=== PATIENT | female | born 1950 | race Caucasian/White ===

== ENCOUNTER → 2021-11-04 13:31 | Outpatient (BNVA) | payer MEDICARE, OTHER, SELFPAY | PROVIDERS: PCP Internal Medicine; Visit Provider Psychiatry & Neurology Neurology | DX: R26.89 Other abnormalities of gait and mobility (principal); M48.00 Spinal stenosis, site unspecified | CPT/HCPCS: 99202 ==

== ENCOUNTER 2021-11-18 11:08 | Outpatient (REF) | payer MEDICARE, OTHER, SELFPAY ==
--- NOTE | ~2021-11-18 | MR_ITS ---
EXAMINATION: MR BRAIN WITHOUT CONTRAST. CLINICAL INFORMATION: 71-year-old with abnormality of gait and mobility. COMPARISON: None TECHNIQUE: Multiplanar multisequence MR imaging of the brain was done. FINDINGS: Brain Volume: Mild diffuse generalized brain parenchymal volume loss without definite focal regional predominance within the limitations of a qualitative assessment. Structural: Partially empty sella, normal variant. Brain and Meninges: DWI sequence demonstrates no restricted diffusion. Specifically, there is no evidence for acute or subacute cerebral ischemia. Gradient refocused imaging demonstrates no evidence for hemorrhage, hemosiderin staining or abnormal mineral deposition. A few punctate FLAIR/T2 hyperintensities are seen in the subcortical white matter of the left posterior frontal and right anterior frontal lobes which are nonspecific findings but likely reflect small zones of chronic ischemic microangiopathy. Otherwise the remainder of the brain is normal in signal intensity. No extra-axial fluid collections, space-occupying process, mass effect. Scattered perivascular spaces are noted. Ventricles and Subarachnoid Spaces: Ventricular system and subarachnoid spaces are within normal limits without hydrocephalus. Orbital Structures: The visualized orbital structures are grossly unremarkable within the limitations of the study. Vascular: Signal voids are noted in the visualized major intracranial vessels. Sinuses and Osseous Structures: Osseous marrow signal intensity appears grossly within normal limits. There are multilevel cervical degenerative changes between C3-C4 and C5-C6 inclusive with associated spondylosis and disc space height loss. Minor mucosal thickening in the ethmoid complex and maxillary sinuses with a small retention cyst in the right maxillary sinus. MR/MR head/brain wo con IMPRESSION: 1. No acute intracranial process. Specifically, no evidence for infarction, hemorrhage, extra-axial fluid collection, space-occupying process, mass effect or hydrocephalus. 2. A few nonspecific punctate T2 hyperintensities in the white matter of both cerebral hemispheres, which could reflect tiny foci of chronic ischemic microangiopathy in a patient of this age. 3. Mild paranasal sinus mucosal inflammatory changes as discussed above and upper cervical DDD and spondylosis.
== END 2021-11-18 11:09 | disposition home or self-care (01) ==
LOC: HO.MRI 11:08
PROVIDERS: Visit Provider Psychiatry & Neurology Neurology
DX: R26.89 Other abnormalities of gait and mobility (principal); M48.00 Spinal stenosis, site unspecified
CPT/HCPCS: 70551

== ENCOUNTER → 2022-01-06 10:04 | Outpatient (BNVA) | payer MEDICARE, OTHER, SELFPAY | PROVIDERS: PCP Internal Medicine; Visit Provider Psychiatry & Neurology Neurology | DX: G20 Parkinson's disease (principal); R26.89 Other abnormalities of gait and mobility; M48.00 Spinal stenosis, site unspecified | CPT/HCPCS: 99212 ==

== ENCOUNTER → 2022-03-24 08:23 | Outpatient (BNVA) | payer MEDICARE, OTHER, SELFPAY | PROVIDERS: PCP Internal Medicine; Visit Provider Psychiatry & Neurology Neurology | DX: G20 Parkinson's disease (principal); R26.89 Other abnormalities of gait and mobility; M48.00 Spinal stenosis, site unspecified | CPT/HCPCS: 99212 ==

== ENCOUNTER → 2022-06-09 07:52 | Outpatient (BNVA) | payer MEDICARE, OTHER, SELFPAY | PROVIDERS: PCP Internal Medicine; Visit Provider Psychiatry & Neurology Neurology | DX: G20 Parkinson's disease (principal); R26.89 Other abnormalities of gait and mobility; M48.00 Spinal stenosis, site unspecified; Z79.899 Other long term (current) drug therapy | CPT/HCPCS: 99212 ==

== ENCOUNTER → 2022-10-03 13:28 | Outpatient (BNVA) | payer MEDICARE, OTHER, SELFPAY | PROVIDERS: PCP Internal Medicine; Visit Provider Psychiatry & Neurology Neurology | DX: G20 Parkinson's disease (principal); M48.00 Spinal stenosis, site unspecified; R26.89 Other abnormalities of gait and mobility | CPT/HCPCS: 99212 ==

== ENCOUNTER → 2022-12-28 08:26 | Outpatient (BNVA) | payer MEDICARE, OTHER, SELFPAY | PROVIDERS: PCP Internal Medicine; Visit Provider Psychiatry & Neurology Neurology | DX: G20 Parkinson's disease (principal); R26.89 Other abnormalities of gait and mobility; M48.00 Spinal stenosis, site unspecified | CPT/HCPCS: 99212 ==

== ENCOUNTER 2023-05-01 08:53 | Outpatient (AMB) | payer MEDICARE, OTHER, SELFPAY ==
[2023-05-01 09:13] VITALS: BP 120/82; PULSE 77; O2SAT 99; BMI 39.8
--- NOTE | 2023-05-01 09:13 | A.OFFVIS_ITS ---
Intake Vital Signs 05/01/23 09:13 Height 5 ft Weight 204 lb BMI 39.8 BP 120/82 Blood Pressure Location Rt brachial Position Sitting Pulse 77 Pulse Source Pulse Oximeter Pulse Oximetry (%) 99 Oxygen Delivery Method Room Air Intake Visit Reasons: 4m follow up Parkinson's-lvm Intake Note: Patient presents for 4 month follow up Allergies pneumococcal 7-valent conjugate to [From Prevnar] Allergy (Mild, Verified 05/01/23 09:15) unknown Sulfa (Sulfonamide Antibiotics) Allergy (Mild, Verified 05/01/23 09:15) unknown enviormental Adverse Reaction (Uncoded 05/01/23 09:15) hard to breath Medication List - Last Reconciled 05/01/23 by Racquel Kruse MD aspirin 81 mg PO DAILY carbidopa-levodopa 25-100 mg 2 tabs PO QID cholecalciferol (vitamin D3) 50 mcg PO DAILY lisinopril 2.5 mg PO DAILY losartan 100 mg PO DAILY metformin ER 750 mg PO DAILY ropinirole ER 2 mg PO BEDTIME triamterene-hydrochlorothiazid 37.5-25 mg 1 tab PO DAILY HPI HPI Comments History of Present Illness Details 72y/o female with Diabetes, HTN , arthritis comes for follow up of her gait problems and parkinsons.she is doing good since her last visit.she had gall bladder surgery - had a fall and was in rehab and did well requip XL 2 mg qhs helped. Gabapentin does not help with sleep and had hallucinations she is on sinemet 25/100 8 tabs a day. Her restless legs start around 4 pm. she has h/o scoliosis and spinal stenosis . she is followed up at [facility] and had shots in her pat hip No tremors . less freezing episodes her hand movements are slow, handwriting is small and voice is softer. Cognition is stable She olivera strouble sleeping if she misses requip She is not sure if she snores. No problem with chewing or swallowing . she has h/o chronic constipation No dizziness double vision or vertigo [facility] Medical History Arthritis Back pain Diabetes Falls Gait disorder HTN (hypertension) Spinal stenosis Surgical History (Updated 05/01/23 @ 09:18 by Marsha Yu Jeffrey) History of appendectomy History of carpal tunnel release Hx of cholecystectomy Family History Mother HTN (hypertension) Heart disease Father HTN (hypertension) Heart disease Brother HTN (hypertension) Heart disease Sister HTN (hypertension) Heart disease Social History Alcohol intake: never Patient Tobacco Use Status: Never used Tobacco Physical Exam Vital Signs: Last Vital Signs Pulse 77 05/01/23 09:13 BP 120/82 05/01/23 09:13 Pulse Ox 99 05/01/23 09:13 Oxygen Delivery Method Room Air 05/01/23 09:13 BMI result Body Mass Index 39.8 Const General: cooperative, healthy appearing and no acute distress Nutritional Appearance: obese Orientation/consciousness: patient oriented x3 HEENT Head: Yes normal to inspection Neck Other: mild antecollis and restricted range of motion Neuro Other: Mild decreased blink and facial expression slow tongue movements Voice- mild hypophonia No tremors Fine Finger movements -moderately decreased L>R Alternating hand movements - decreased pat Hand movements - decreased pat Foot taps- decreased pat No cog wheel rigidity gait - mild stooped and tilt to left , no arm swing on left , mildly decreased stride , difficulty turning slowness, can walk without walker General: patient oriented x3 and no focal motor deficits Cognition (Neuro): normal cognition Motor exam (neuro): 5/5 motor strength present throughout Deep tendon reflexes (DTR's): Right triceps reflex intensity grade: 2+, Left triceps reflex intensity grade: 2+, Rt Biceps (C5, C6): 2+, Left biceps reflex intensity grade: 2+, Right brachioradialis reflex intensity grade: 2+, Right patellar reflex intensity grade: 2+, Left patellar reflex intensity grade: 2+, Right ankle reflex intensity grade: 2+ and Left ankle reflex intensity grade: 2+ Coordination: [id number] test normal Assessment & Plan Assessment & Plan (1) Multifactorial gait disorder: Code(s): R26.89 - Other abnormalities of gait and mobility (2) Spinal stenosis: Code(s): M48.00 - Spinal stenosis, site unspecified (3) Parkinson's disease: Code(s): G20 - Parkinson's disease Plan Sinemet 25/100 to 2 tab qid( 6am,11am,3pm,7pm) Reviewed MRI brain and her MRI LS spine report . Spinal stenosis is likely contributing to her gait issues as well PT continue ropinirole XR 2mg qhs and start requip 0.25 mg 1-4 tabs at 3 pm Orders: Orders PT Evaluation and Treatment Today G20 - Parkinson's disease, R26.89 - Other abnormalities of gait and mobility Medications: New ropinirole orally bedtime; as needed 1-4 tabs at 3-4pm 90 days 360 tabs 6RF Discontinued ropinirole ER Discontinued Reason: Patient no longer taking 1 mg PO BEDTIME Coding Level of Care Code Est Pt Level 4 (33356) Diagnoses Multifactorial gait disorder R26.89 Spinal stenosis M48.00 Parkinson's disease G20
== END 2023-05-01 09:36 | disposition home or self-care (01) ==
PROVIDERS: Visit Provider Psychiatry & Neurology Neurology
DX: R26.89 Other abnormalities of gait and mobility (principal); M48.00 Spinal stenosis, site unspecified; G20 Parkinson's disease
CPT/HCPCS: 99214

== ENCOUNTER → 2023-05-01 08:53 | Outpatient (BNVA) | payer MEDICARE, OTHER, SELFPAY | PROVIDERS: Visit Provider Psychiatry & Neurology Neurology | DX: G20 Parkinson's disease (principal); R26.89 Other abnormalities of gait and mobility; M48.00 Spinal stenosis, site unspecified | CPT/HCPCS: 99212 ==

== ENCOUNTER 2023-08-30 08:53 | Outpatient (AMB) | payer MEDICARE, OTHER, SELFPAY ==
[2023-08-30 08:54] VITALS: BP 128/90; PULSE 80; O2SAT 95; BMI 39.5
--- NOTE | 2023-08-30 08:54 | MHC.OFFVIS ---
Intake Vital Signs 08/30/23 08:54 Height 5 ft Weight 202 lb 4 oz BMI 39.5 BP 128/90 H Blood Pressure Location Lt brachial Position Sitting Pulse 80 Pulse Source Pulse Oximeter Pulse Oximetry (%) 95 Oxygen Delivery Method Room Air Intake Visit Reasons: 4m follow up Parkinson's- Confirmed Intake Note: Pt presents to the office today for a 4 month follow up for parkinsons. Allergies pneumococcal 7-valent conjugate to [From Prevnar] Allergy (Mild, Verified 08/30/23 08:58) unknown Sulfa (Sulfonamide Antibiotics) Allergy (Mild, Verified 08/30/23 08:58) unknown enviormental Adverse Reaction (Uncoded 08/30/23 08:58) hard to breath Medication List - Last Reconciled 08/30/23 by Racquel Kruse MD aspirin 81 mg PO DAILY carbidopa-levodopa 25-100 mg 2 tabs PO QID cholecalciferol (vitamin D3) 50 mcg PO DAILY losartan 100 mg PO DAILY metformin ER 750 mg PO DAILY ropinirole orally bedtime; as needed 1-4 tabs at 3-4pm 90 days ropinirole ER 4 mg PO BEDTIME triamterene-hydrochlorothiazid 37.5-25 mg 1 tab PO DAILY HPI HPI Comments History of Present Illness Details 73y/o female with Diabetes, HTN , arthritis comes for follow up of her gait problems and parkinsons.she is doing good since her last visit.No falls she is under stress because her sister not doing well. she still does the exercises everyday requip XL 2 mg qhs helped. she is on sinemet 25/100 8 tabs a day. Her restless legs start around 4 pm. she has h/o scoliosis and spinal stenosis . she is followed up at [facility] and had shots in her pat hip No tremors . less freezing episodes her hand movements are slow, handwriting is small and voice is softer. Cognition is stable She has trouble sleeping if she misses requip She is not sure if she snores. No problem with chewing or swallowing . she has h/o chronic constipation No dizziness double vision or vertigo [facility] Medical History Back pain Falls Gait disorder Spinal stenosis Arthritis Diabetes HTN (hypertension) Surgical History Hx of cholecystectomy History of carpal tunnel release History of appendectomy Family History Mother HTN (hypertension) Heart disease Father HTN (hypertension) Heart disease Brother HTN (hypertension) Heart disease Sister HTN (hypertension) Heart disease Social History Alcohol intake: never Patient Tobacco Use Status: Never used Tobacco Physical Exam Vital Signs: Last Vital Signs Pulse 80 08/30/23 08:54 BP 128/90 H 08/30/23 08:54 Pulse Ox 95 08/30/23 08:54 Oxygen Delivery Method Room Air 08/30/23 08:54 BMI result Body Mass Index 39.5 Const General: cooperative, healthy appearing and no acute distress Nutritional Appearance: obese Orientation/consciousness: patient oriented x3 HEENT Head: Yes normal to inspection Neck Other: mild antecollis and restricted range of motion Neuro Other: Mild decreased blink and facial expression slow tongue movements Voice- mild hypophonia No tremors Fine Finger movements -moderately decreased L>R Alternating hand movements - decreased pat Hand movements - decreased pat Foot taps- decreased pat No cog wheel rigidity gait - mild stooped and tilt to left , no arm swing on left , mildly decreased stride , difficulty turning slowness, can walk without walker General: patient oriented x3 and no focal motor deficits Cognition (Neuro): normal cognition Motor exam (neuro): 5/5 motor strength present throughout Coordination: [id number] test normal Assessment & Plan Assessment & Plan (1) Multifactorial gait disorder: Code(s): R26.89 - Other abnormalities of gait and mobility (2) Spinal stenosis: Code(s): M48.00 - Spinal stenosis, site unspecified (3) Parkinson's disease: Code(s): G20 - Parkinson's disease Plan Sinemet 25/100 to 2 tab qid( 6am,11am,3pm,7pm) Reviewed MRI brain and her MRI LS spine report . Spinal stenosis is likely contributing to her gait issues as well Increase ropinirole XR 4mg qhs and start requip 0.25 mg 1-4 tabs at 3 pm Medications: Changed From ropinirole ER 2 mg PO BEDTIME 30 tabs 6RF To ropinirole ER 4 mg PO BEDTIME 30 tabs 6RF Coding Level of Care Code Est Pt Level 4 (12239) Diagnoses Multifactorial gait disorder R26.89 Spinal stenosis M48.00 Parkinson's disease G20
== END 2023-08-30 09:25 | disposition home or self-care (01) ==
PROVIDERS: PCP Internal Medicine; Visit Provider Psychiatry & Neurology Neurology
DX: G20.A2 Parkinson's disease without dyskinesia, with fluctuations (principal); R26.89 Other abnormalities of gait and mobility; M48.00 Spinal stenosis, site unspecified
CPT/HCPCS: 99214

== ENCOUNTER → 2023-08-30 08:53 | Outpatient (BNVA) | payer MEDICARE, OTHER, SELFPAY | PROVIDERS: PCP Internal Medicine; Visit Provider Psychiatry & Neurology Neurology | DX: G20.A1 Parkinson's disease without dyskinesia, without mention of fluctuations (principal); R26.89 Other abnormalities of gait and mobility; M48.00 Spinal stenosis, site unspecified | CPT/HCPCS: 99212 ==

== ENCOUNTER 2024-01-02 10:14 | Outpatient (AMB) | payer MEDICARE, OTHER, SELFPAY ==
[2024-01-02 10:30] VITALS: BP 150/88; PULSE 62; RESP 16; O2SAT 96; BMI 39.1
--- NOTE | 2024-01-02 10:30 | A.OFFVIS_ITS ---
Intake Vital Signs 01/02/24 10:30 Height 5 ft Weight 200 lb BMI 39.1 BP 150/88 H Blood Pressure Location Rt brachial Position Sitting Respiration 16 Pulse 62 Pulse Source Pulse Oximeter Pulse Oximetry (%) 96 Oxygen Delivery Method Room Air Intake Visit Reasons: 4 mo f/u - Parkinsons Intake Note: Pt presents for 4 month follow up for Parkinson's. Horse Groomer Required: No Allergies pneumococcal 7-valent conjugate to [From Prevnar] Allergy (Mild, Verified 06/18 10:30) unknown Sulfa (Sulfonamide Antibiotics) Allergy (Mild, Verified 01/02/24 10:30) unknown enviormental Adverse Reaction (Uncoded 01/02/24 10:30) hard to breath Medication List - Last Reconciled 01/02/24 by Racquel Kruse MD amlodipine 2.5 mg PO BID aspirin 81 mg PO DAILY carbidopa-levodopa 25-100 mg 2 tabs PO .5 times a day 90 days cholecalciferol (vitamin D3) 50 mcg PO DAILY latanoprost 0.005% 1 drp ophthalmic (eye) DAILY losartan 100 mg PO DAILY metformin ER 750 mg PO DAILY metoprolol succinate ER 25 mg PO DAILY ropinirole orally bedtime; as needed 1-4 tabs at 3-4pm 90 days ropinirole ER 2 mg PO BEDTIME triamterene-hydrochlorothiazid 37.5-25 mg 1 tab PO DAILY HPI HPI Comments History of Present Illness Details 73y/o female with Diabetes, HTN , arthri tis comes for follow up of her gait problems and parkinsons.she is doing good since her last visit. she had 1 fall - could not get up so she called 911.she felt like her feet was stuck . she still does the exercises everyday requip XL 2 mg qhs helped.she could not tolerate the 4 mg .she does not use the short acting ropiniorle 0.25 mg as recommended. she is on sinemet 25/100 8 tabs a day. Her restless legs start around 4 pm. she has h/o scoliosis and spinal stenosis . she is followed up at [facility] and had shots in her pat hip No tremors . less freezing episodes her hand movements are slow, handwriting is small and voice is softer. Cognition is stable She has trouble sleeping if she misses requip She is not sure if she snores. No problem with chewing or swallowing . she has h/o chronic constipation No dizziness double vision or vertigo [facility] Medical History (Updated 01/02/24 @ 10:55 by Racquel Kruse MD) Parkinsonism Back pain Falls Gait disorder Spinal stenosis Arthritis Diabetes HTN (hypertension) Surgical History Hx of cholecystectomy History of carpal tunnel release History of appendectomy Family History Mother HTN (hypertension) Heart disease Father HTN (hypertension) Heart disease Brother HTN (hypertension) Heart disease Sister HTN (hypertension) Heart disease Social History Alcohol intake: never Patient Tobacco Use Status: Never used Tobacco Physical Exam Vital Signs: Last Vital Signs Pulse 62 01/02/24 10:30 Resp 16 01/02/24 10:30 BP 150/88 H 01/02/24 10:30 Pulse Ox 96 01/02/24 10:30 Oxygen Delivery Method Room Air 01/02/24 10:30 BMI result Body Mass Index 39.1 Const General: cooperative, healthy appearing and no acute distress Nutritional Appearance: obese Orientation/consciousness: patient oriented x3 HEENT Head: Yes normal to inspection Neck Other: mild antecollis and restricted range of motion Neuro Other: Mild decreased blink and facial expression slow tongue movements Voice- mild hypophonia No tremors Fine Finger movements -moderately decreased L>R Alternating hand movements - decreased pat Hand movements - decreased pat Foot taps- decreased pat No cog wheel rigidity gait - mild stooped and tilt to left , no arm swing on left , mildly decreased stride , difficulty turning slowness, can walk without walker General: patient oriented x3 and no focal motor deficits Cognition (Neuro): normal cognition Motor exam (neuro): 5/5 motor strength present throughout Coordination: [id number] test normal Assessment & Plan Assessment & Plan (1) Multifactorial gait disorder: Code(s): R26.89 - Other abnormalities of gait and mobility (2) Spinal stenosis: Code(s): M48.00 - Spinal stenosis, site unspecified (3) Parkinsonism: Code(s): G20.C - Parkinsonism, unspecified Plan Increase Sinemet 25/100 to 2 tab 5 times a day( 6am,10am,2pm,6pm, 10 pm ) Reviewed MRI brain and her MRI LS spine report . Spinal stenosis is likely contributing to her gait issues as well ropinirole XR 2mg qhs and start requip 0.25 mg 1-4 tabs at 3 pm Orders: Orders PT Evaluation and Treatment Today G20.C - Parkinsonism, unspecified Medications: Changed From carbidopa-levodopa 25-100 mg 2 tabs PO QID 720 tabs 1RF To carbidopa-levodopa 25-100 mg 6am,10am,2pm,6pm 10pm 2 tabs PO .5 times a day 90 days 900 tabs 1RF Coding Level of Care Code Est Pt Level 4 (13213) Diagnoses Multifactorial gait disorder R26.89 Spinal stenosis M48.00 Parkinsonism G20.C
== END 2024-01-02 11:17 | disposition home or self-care (01) ==
PROVIDERS: PCP Internal Medicine; Visit Provider Psychiatry & Neurology Neurology
DX: R26.89 Other abnormalities of gait and mobility (principal); M48.00 Spinal stenosis, site unspecified; G20.C Parkinsonism, unspecified
CPT/HCPCS: 99214

== ENCOUNTER → 2024-01-02 10:14 | Outpatient (BNVA) | payer MEDICARE, OTHER, SELFPAY | PROVIDERS: PCP Internal Medicine; Visit Provider Psychiatry & Neurology Neurology | DX: G20.C Parkinsonism, unspecified (principal); R26.89 Other abnormalities of gait and mobility; M48.00 Spinal stenosis, site unspecified | CPT/HCPCS: 99212 ==

== ENCOUNTER 2024-06-27 11:07 | Outpatient (AMB) | payer MEDICARE, OTHER, SELFPAY ==
[2024-06-27 11:11] VITALS: BP 122/80; PULSE 60; RESP 17; O2SAT 97; BMI 39.3
--- NOTE | 2024-06-27 11:11 | MHC.OFFVIS ---
Vital Signs 06/27/24 11:11 Height 5 ft Weight 201 lb BMI 39.3 BP 122/80 Blood Pressure Location Rt brachial Position Sitting Respiration 17 Pulse 60 Pulse Source Pulse Oximeter Pulse Oximetry (%) 97 Oxygen Delivery Method Room Air Intake Visit Reasons: 5 Month F/U Intake Note: Pt presents to the office for a 6 month follow up for multifactional gait disorder. Insurance Healthcare Consultant Required: No Allergies pneumococcal 7-valent conjugate to [From Prevnar] Allergy (Mild, Verified 06/27/24 11:11) unknown Sulfa (Sulfonamide Antibiotics) Allergy (Mild, Verified 06/27/24 11:11) unknown enviormental Adverse Reaction (Uncoded 06/27/24 11:11) hard to breath HPI Comments Details: 74y/o female with Diabetes, HTN , arthritis comes for follow up of her gait problems and parkinsons. she had 1 fall 1 week ago- walked without walker to get to the car. she fell on concrete- she went to [facility] ER she has home PT 2 times week requip XL 2 mg qhs helped.she could not tolerate the 4 mg .she does not use the short acting ropiniorle 0.25 mg as recommended. she is on sinemet 25/100 8 tabs a day. Her restless legs start around 4 pm. she has h/o scoliosis and spinal stenosis . she is followed up at [facility] and had shots in her pat hip No tremors . less freezing episodes her hand movements are slow, handwriting is small and voice is softer. Cognition is stable She has trouble sleeping if she misses requip She is not sure if she snores. No problem with chewing or swallowing . she has h/o chronic constipation No dizziness double vision or vertigo [facility] Medical History Parkinsonism Back pain Falls Gait disorder Spinal stenosis Arthritis Diabetes HTN (hypertension) Surgical History Hx of cholecystectomy History of carpal tunnel release History of appendectomy Family History Mother HTN (hypertension) Heart disease Father HTN (hypertension) Heart disease Brother HTN (hypertension) Heart disease Sister HTN (hypertension) Heart disease Social History Alcohol intake: never Patient Tobacco Use Status: Never used Tobacco Physical Exam Vital Signs: Last Vital Signs Pulse 60 06/27/24 11:11 Resp 17 06/27/24 11:11 BP 122/80 06/27/24 11:11 Pulse Ox 97 06/27/24 11:11 Oxygen Delivery Method Room Air 06/27/24 11:11 BMI result Body Mass Index 39.3 Const General: cooperative, healthy appearing and no acute distress Nutritional Appearance: obese Orientation/consciousness: patient oriented x3 HEENT Head: Yes normal to inspection Neck Other: mild antecollis and restricted range of motion Neuro Other: Mild decreased blink and facial expression slow tongue movements Voice- mild hypophonia No tremors Fine Finger movements -moderately decreased L>R Alternating hand movements - decreased pat Hand movements - decreased pat Foot taps- decreased pat No cog wheel rigidity gait -did not bring her walker . General: patient oriented x3 and no focal motor deficits Cognition (Neuro): normal cognition Motor exam (neuro): 5/5 motor strength present throughout Coordination: [id number] test normal Assessment & Plan Assessment & Plan (1) Multifactorial gait disorder: Code(s): R26.89 - Other abnormalities of gait and mobility Category: Medical (2) Spinal stenosis: Code(s): M48.00 - Spinal stenosis, site unspecified Category: Medical Qualifiers: Spinal region: thoracolumbar Qualified Code(s): M48.05 - Spinal stenosis, thoracolumbar region (3) Parkinsonism: Code(s): G20.C - Parkinsonism, unspecified Category: Medical Plan continue Sinemet 25/100 to 2 tab 5 times a day( 6am,10am,2pm,6pm, 10 pm ) Reviewed MRI brain and her MRI LS spine report . Spinal stenosis is likely contributing to her gait issues as well ropinirole XR 2mg qhs and continue requip 0.25 mg 1-4 tabs at 3 pm Coding Level of Care Code Est Pt Level 4 (68355) Complex EM visit Add On G2211 Diagnoses Multifactorial gait disorder R26.89 Spinal stenosis of thoracolumbar region M48.05 Spinal region: thoracolumbar Parkinsonism G20.C
== END 2024-06-27 11:35 | disposition home or self-care (01) ==
PROVIDERS: PCP Internal Medicine; Visit Provider Psychiatry & Neurology Neurology
DX: R26.89 Other abnormalities of gait and mobility (principal); M48.05 Spinal stenosis, thoracolumbar region; G20.C Parkinsonism, unspecified
CPT/HCPCS: 99214; G2211

== ENCOUNTER → 2024-06-27 11:07 | Outpatient (BNVA) | payer MEDICARE, OTHER, SELFPAY | PROVIDERS: PCP Internal Medicine; Visit Provider Psychiatry & Neurology Neurology | DX: R26.89 Other abnormalities of gait and mobility (principal); G20.C Parkinsonism, unspecified; M48.05 Spinal stenosis, thoracolumbar region | CPT/HCPCS: 99212 ==

== ENCOUNTER → 2024-11-28 11:01 | Outpatient (BNVA) | payer MEDICARE, SELFPAY | PROVIDERS: PCP Internal Medicine; Visit Provider Psychiatry & Neurology Neurology | DX: G20.C Parkinsonism, unspecified (principal); M48.05 Spinal stenosis, thoracolumbar region; R26.89 Other abnormalities of gait and mobility | CPT/HCPCS: 99212 ==

== ENCOUNTER 2024-11-28 11:04 | Outpatient (AMB) | payer MEDICARE, SELFPAY ==
--- NOTE | 2024-11-28 11:03 | MHC.OFFVIS ---
Vital Signs 11/28/24 11:06 Height 5 ft Weight 201 lb BMI 39.3 BP 126/70 Blood Pressure Location Rt brachial Position Sitting Intake Visit Reasons: f/u appt Intake Note: Patient presents for follow up Allergies pneumococcal 7-valent conjugate to [From Prevnar] Allergy (Mild, Verified 11/28/24 11:04) unknown Sulfa (Sulfonamide Antibiotics) Allergy (Mild, Verified 11/28/24 11:04) unknown enviormental Adverse Reaction (Uncoded 11/28/24 11:04) hard to breath HPI Comments Details: 74y/o female with Diabetes, HTN , arthritis comes for follow up of her gait problems and parkinsons.No falls from last visit. requip XL 2 mg qhs helped.she could not tolerate the 4 mg . short acting ropiniorle 0.25 mg 4 tabs qhs helps.she is sleeping better she is on sinemet 25/100 10 tabs a day. Her restless legs start around 4 pm. she has h/o scoliosis and spinal stenosis . she is followed up at [facility] and had shots in her pat hip No tremors . less freezing episodes her hand movements are slow, handwriting is small and voice is softer. Cognition is stable She has trouble sleeping if she misses requip She is not sure if she snores. No problem with chewing or swallowing . she has h/o chronic constipation No dizziness double vision or vertigo PFSH Medical History Parkinsonism Back pain Falls Gait disorder Spinal stenosis Arthritis Diabetes HTN (hypertension) Surgical History Hx of cholecystectomy History of carpal tunnel release History of appendectomy Family History Mother HTN (hypertension) Heart disease Father HTN (hypertension) Heart disease Brother HTN (hypertension) Heart disease Sister HTN (hypertension) Heart disease Social History Alcohol intake: never Patient Tobacco Use Status: Never used Tobacco Physical Exam Vital Signs: Last Vital Signs BP 126/70 11/28/24 11:06 BMI result Body Mass Index 39.3 Const General: cooperative, healthy appearing and no acute distress Nutritional Appearance: obese Orientation/consciousness: patient oriented x3 HEENT Head: Yes normal to inspection Neck Other: mild antecollis and restricted range of motion Neuro Other: Mild decreased blink and facial expression slow tongue movements Voice- mild hypophonia No tremors Fine Finger movements -moderately decreased L>R Alternating hand movements - decreased pat Hand movements - decreased pat Foot taps- decreased pat No cog wheel rigidity gait -did not bring her walker . General: patient oriented x3 and no focal motor deficits Cognition (Neuro): normal cognition Motor exam (neuro): 5/5 motor strength present throughout Coordination: [id number] test normal Assessment & Plan Assessment & Plan (1) Multifactorial gait disorder: Code(s): R26.89 - Other abnormalities of gait and mobility Category: Medical (2) Spinal stenosis: Code(s): M48.00 - Spinal stenosis, site unspecified Category: Medical Qualifiers: Spinal region: thoracolumbar Qualified Code(s): M48.05 - Spinal stenosis, thoracolumbar region (3) Parkinsonism: Code(s): G20.C - Parkinsonism, unspecified Category: Medical Qualifiers: Parkinsonism type: unspecified Qualified Code(s): G20.C - Parkinsonism, unspecified Plan continue Sinemet 25/100 to 2 tab 5 times a day( 6am,10am,2pm,6pm, 10 pm ) Reviewed MRI brain and her MRI LS spine report . Spinal stenosis is likely contributing to her gait issues as well ropinirole XR 2mg qhs and continue requip 0.25 mg 1-4 tabs at 3 pm Home PT to improve gait Orders: [facility]errals [facility] Referral G20.C - Parkinsonism, unspecified, M48.05 - Spinal stenosis, thoracolumbar region, R26.9 - Unspecified abnormalities of gait and mobility Coding Level of Care Code Est Pt Level 4 (69109) Complex EM visit Add On G2211 Diagnoses Multifactorial gait disorder R26.89 Spinal stenosis of thoracolumbar region M48.05 Spinal region: thoracolumbar Parkinsonism, unspecified Parkinsonism type G20.C Parkinsonism type: unspecified
[2024-11-28 11:06] VITALS: BP 126/70; BMI 39.3
--- OUTSIDE RECORDS SUMMARY | 2024-11-28 13:25 | XMS_ITS | Encounter Summary ---
Author Organization [facility] Address [address] [place] [address] Phone Care Team Providers Care Bed Laster Name Role Phone Joaquina Lamb MD Primary Care Provider Encounter Details Date Type Department Care Team (Late st Contact Info) Description 07/01/2024 Documentation Only [facility] [place], [address] [place] [address] Ra Singleton DO [address] [place] [address] Social History Tobacco Use Types Packs/Day Years Used Date Smoking Tobacco: Never Smokeless Tobacco: Never Alcohol Use Standard Drinks/Week Comments Never 0 (1 standard drink = 0.6 oz pur e alcohol) Comments Unknown Sex and Gender Information Value Date Recorded Sex Assigned at Not on file Legal Sex Female 5:11 PM EST Gender Identity Not on file Sexual Orientation Not on file documented as of this encounter Plan of Treatment Upcoming Encounters Date Type Department Care Team (Late st Contact Info) Description 07/15/2025 1:30 PM EDT Office Visit [facility] [place] [phone] Ra Singleton DO [address] [place] [address] documented as of this encounter Visit Diagnoses Not on filedocumented in this encounter Care Teams Bed Laster Relationship Specialty Start Date End Date Joaquina Lamb MD [address] [place] [id number] PCP - General Internal Medicine 01/24/24 documented as of this encounter
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
--- OUTSIDE RECORDS SUMMARY | 2024-11-28 13:25 | XMS_ITS | Encounter Summary ---
Author Organization [facility] Address [address] [place] [address] Phone Care Team Providers Care Clinical Transplant Coordinator Name Role Phone Joaquina Lamb MD Primary Care Provider Encounter Details Date Type Department Care Team (Late st Contact Info) Description 01/24/2024 Documentation Only [facility] [address] [place] [phone] [place], [place] [address] [place] [address] Social History Tobacco Use Types Packs/Day Years Used Date Smoking Tobacco: Never Assessed Comments Unknown Sex and Gender Information Value Date Recorded Sex Assigned at Not on file Legal Sex Female 5:11 PM EST Gender Identity Not on file Sexual Orientation Not on file documented as of this encounter Plan of Treatment Upcoming Encounters Date Type Department Care Team (Late st Contact Info) Description 07/15/2025 1:30 PM EDT Office Visit [facility] [phone] [facility] [address] [place] [phone] documented as of this encounter Visit Diagnoses Not on filedocumented in this encounter Care Teams Clinical Transplant Coordinator Relationship Specialty Start Date End Date Joaquina Lamb MD [address] [place] [phone] PCP - General Internal Medicine 01/24/24 documented as of this encounter
--- OUTSIDE RECORDS SUMMARY | 2024-11-28 13:25 | XMS_ITS | Clinical Summary ---
Author Organization [facility] [place], Address [address] [place] [address] [place] [address] Phone Care Team Providers Care Anesthesiology Faculty Name Role Phone Joaquina Lamb MD Primary Care Provider Allergies Active Allergy Reactions Criticality Noted Date Comments Codeine 02/21/2024 Pneumococcal Vaccine Other (see comments) 04/29 Other Reaction(s): redness for months Sulfa Antibiotics 04/29/2023 Medications acetaminophen (TYLENOL) 325 MG tablet Take 325 mg by mouth every 4 (four) hours if needed for mild pain Active aspirin (ST GRETCHEN) 81 MG EC tablet Take 81 mg by mouth 1 (one) time each day Active losartan (COZAAR) 100 MG tablet Take 100 mg by mouth 1 (one) time each day Active metFORMIN (GLUCOPHAGE) 500 MG tablet Take 500 mg by mouth in the morning and 500 mg in the evening. Take with meals. Active metoprolol tartrate 25 MG tablet Take 12.5 mg by mouth in the morning and 12.5 mg in the evening. Active rOPINIRole (REQUIP) 2 MG tablet Take 2 mg by mouth every night Active Dapagliflozin Propanediol 10 MG tablet Take 10 mg by mouth 1 (one) time each day in the morning Active furosemide (LASIX) 40 MG tablet Take 40 mg by mouth in the morning and 40 mg in the evening. Active amLODIPine (NORVASC) 5 MG tablet Take 1 tablet (5 mg total) by mouth 1 (one) time each day 90 tablet 3 07/02/2024 07/02/20 25 Active Active Problems Problem Noted Date Diagnosed Date Hypertensive disorder 02/21/2024 Type 2 diabetes mellitus 03/30/2023 Family History Medical History Relation Comments Heart disease Father Hypertension Mother Diabetes Sister Relation Status Comments Father Mother Sister Social History Tobacco Use Types Packs/Day Years Used Date Smoking Tobacco: Never Smokeless Tobacco: Never Tobacco Cessation:Counseling Given: Not Answered Alcohol Use Standard Drinks/Week Comments Never 0 (1 standard drink = 0.6 oz pur e alcohol) Comments Unknown Sex and Gender Information Value Date Recorded Sex Assigned at Not on file Legal Sex Female 5:11 PM EST Gender Identity Not on file Sexual Orientation Not on file Last Filed Vital Signs Vital Sign Reading Time Taken Comments Blood Pressure 110/64 07/02/2024 2:40 PM EDT Pulse 72 07/02/2024 2:40 PM EDT Temperature - - Respiratory Rate - - Oxygen Saturation - - Inhaled Oxygen Concentration - - Weight - - Height - - Body Mass Index - - Plan of Treatment Upcoming Encounters Date Type Department Care Team (Late st Contact Info) Description 07/15/2025 1:30 PM EDT Office Visit [facility] [address] [place] [address] Ra Singleton, DO [address] [facility] [place] [address] Health Maintenance Due Date Last Done Comments Breast Cancer Screening 1950 Colorectal Cancer Screening: Annual FOBT 1999 Colorectal Cancer Screening: Colonoscopy 1999 Colorectal Cancer Screening: Sigmoidoscopy 1999 Pneumococcal Vaccine: 65+ Ye ars (2 of 2 - PPSV23 or PCV20) 12/29/2016 12/30/2015 Diabetes: Hemoglobin A1C 02/07/2024 Diabetes: Ophthalmology Exam 02/07/2024 Diabetes: Pedal Pulse Checked 02/07/2024 Diabetes: Sensory Foot Exam 02/07/2024 Diabetes: Visual Foot Exam 02/07/2024 Influenza Vaccine (#1) 2024 Hepatitis B Vaccine Aged Out No longe r eligible based on patient's age to complete this topic Insurance MEDICARE [facility] Care Teams Anesthesiology Faculty Relationship Specialty Start Date End Date Joaquina Lamb MD [address] [place] [phone] PCP - General Internal Medicine 01/24/24
== END 2024-11-28 11:40 | disposition home or self-care (01) ==
PROVIDERS: PCP Internal Medicine; Visit Provider Psychiatry & Neurology Neurology
DX: R26.89 Other abnormalities of gait and mobility (principal); M48.05 Spinal stenosis, thoracolumbar region; G20.C Parkinsonism, unspecified
CPT/HCPCS: 99214; G2211

== ENCOUNTER 2025-07-01 09:51 | Outpatient (AMB) | payer MEDICARE, SELFPAY ==
--- OUTSIDE RECORDS SUMMARY | 2025-06-30 09:30 | XMS_ITS | Encounter Summary ---
Author Organization [facility] Address [address] [place] [address] Care Team Providers Care Electric Organ Assembler And Checker Name Role Phone Joaquina Lamb MD Primary Care Provider [phone] Reason for Visit * Imaging (Routine) - Authorized Specialty Diagnoses / Procedures Referred By Contac t Referred To Contact Cardiology Diagnoses CHF with left ventricular diastolic dysfunction, NYHA class 1 (CMS/HCC V24, CMS/HCC V28) Procedures Transthoracic echocardiogram (TTE) complete with PRN contrast, bubble, strain, and 3D order panel OK TTE W 2D IMAGE COMPLETE W DOPPLER ECHO & COLOR FLOW DOPPLER ECHO OK PRABHJOT 2D COMPLETE W/CONTRAST OR W & WO CONTRAST WITH DOPPLER Monika Adams NP [address] [place] [address] Phone: tel: fax: [facility] Referral ID Status Reason Start Date Expiration Date V isits Requested Visits Authorized [id number] Authorized 04/01/2025 04/01/2026 1 1 Encounter Details Date Type Department Care Team (Latest Contact Info) Description 06/30/2025 9:30 AM EDT Ancillary Procedure [facility] - [address] [place] [address] CHF with left ventricular diastolic dysfunction, NYHA class 1 (CMS/HCC V24, CMS/HCC V28) Social History Tobacco Use Types Packs/Day Years [...] on file documented as of this encounter Last Filed Vital Signs Vital Sign Reading Time Taken Comments Blood Pressure 120/65 06/30/2025 9:52 AM EDT Pulse - - Temperature - - Respiratory Rate - - Oxygen Saturation - - Inhaled Oxygen Concentration - - Weight 88.5 kg (195 lb) 06/30/2025 9:52 AM EDT Height 147.3 cm (4' 10 ) 06/30/2025 9:52 AM EDT Body Mass Index 40.76 06/30/2025 9:52 AM EDT documented in this encounter Plan of Treatment Upcoming Encounters Date Type Department Care Team (Late st Contact Info) Description 10/17/2025 7:40 AM EST Office Visit [facility] - [address] [place] [address] Monika Adams NP [address] [place] [address] documented as of this encounter Procedures Procedure Name Priority Date/Time Associated Diagnosis Comments TRANSTHORACIC ECHOCARDIOGRAM (TTE) COMPLETE Routine 06/30/2025 9:52 AM EDT CHF with left ventricular diastolic dysfunction, NYHA class 1 (CMS/HCC V24, CMS/HCC V28) documented in this encounter Results * (ABNORMAL) TRANSTHORACIC ECHOCARDIOGRAM (TTE) COMPLETE (06/30/2025 9:52 AM EDT) BSA 1.9 m2 CV PACS Left Atrium Minor [place] 4.4 cm CV PACS Left Atrium Major [place] 5.0 cm CV PACS LA Area Sys (A2C) 18 cm2 CV PACS LA Area Sys (A4C) 20 cm2 CV PACS LA Volume (BP) 63 mL CV PACS RA Area 9.3 cm2 CV PACS RA 2D Volume 17 mL CV PACS AV Mean Gradient 5 mmHg CV PACS AV Mean Gradient 5 mmHg CV PACS Ao VTI 37.9 cm CV PACS AV Peak Josh 1.6 m/s CV PACS AV Peak Gradient 10 mmHg CV PACS AV Area Continuity Equation 2.2 cm2 CV PACS AV Area Peak Velocity 2.0 cm2 CV PACS Aortic Sinus Valsalva 2.9 cm CV PACS Ascending Aorta 3.1 cm CV PACS IVC Proximal 1.8 cm CV PACS IVSD 1.1(A) 0.6 - 0.9 cm CV PACS LVIDD 3.6(A) 3.8 - 5.2 cm CV PACS LVIDS 2.6 2.2 - 3.5 cm CV PACS LVOT Diameter 2.0 cm CV PACS LVOT Mean Josh 0.7 m/s CV PACS LVOT Mean Grad 2 mmHg CV PACS LVOT Peak VTI 26.1 cm CV PACS LVOT Peak Josh 1.1 m/s CV PACS LVOT Peak Gradient 4 mmHg CV PACS LVPWD 1.1(A) 0.6 - 0.9 cm CV PACS MV E' Tissue Velocity Lateral 6 cm/s CV PACS MV E' Tissue Velocity Septal 4 cm/s CV PACS LVOT Area 3.1 cm2 CV PACS LVOT Stroke Volume 82 mL CV PACS MV Deceleration Isabela 4.2 m/s2 CV PACS E Wave Deceleration Time 261(A) 119 - 242 ms CV PACS MV PHT 98 ms CV PACS MV Peak A Josh 1.43 m/s CV PACS MV Peak E Josh 1.10 m/s CV PACS MV Mean Gradient 4 mmHg CV PACS MV VTI 57.5 cm CV PACS Mitral Valve Max Velocity 1.8 m/s CV PACS MV Peak Gradient 13 mmHg CV PACS MV Area PHT 2.2 cm2 CV PACS MV Area Continuity Equation 1.4 cm2 CV PACS PV Acceleration Time 63 ms CV PACS PV Acceleration Time 63 ms CV PACS PV Peak Velocity 1.0 m/s CV PACS PV Peak Gradient 4 mmHg CV PACS RV Diastolic Basal Dimension 2.8 2.5 - 4.1 cm CV PACS RV S' 10 cm/s CV PACS TAPSE 18 mm CV PACS E/E' Ratio Septal 28 CV PACS E/E' Ratio Averaged 23 CV PACS LVOT Stroke Index 46 mL/m2 CV PACS Relative Wall Thickness ratio 0.61 CV PACS LVOT:AV VTI Index 0.69 CV PACS FS 28 % CV PACS LV Mass 2D 124 g CV PACS Ascending Aorta Index 1.72 cm/m2 CV PACS MV VTI:LVOT VTI ratio 2.2 CV PACS LVOT flow 220 mL/s CV PACS RA 2D Volume Index 9 mL/m2 CV PACS LOBO Index (VTI) 1.20 cm2/m2 CV PACS LOBO Index (Pk Josh) 1.11 cm2/m2 CV PACS LVIDD Index 2.00 cm/m2 CV PACS LVIDS Index 1.44 cm/m2 CV PACS AV Velocity Ratio 0.69 CV PACS E/A Ratio 0.8 CV PACS E/E' Ratio Lateral 18 CV PACS LA Volume Index (BP) 35 mL/m2 CV PACS LV Mass Index 2D 69 g/m2 CV PACS Est. RA Pressure 3 mmHg CV PACS Anatomical Region Laterality Modality Ultrasound Narrative 06/30/2025 12:59 PM EDT Left ventricle cavity is small. Left ventricular systolic function is in the normal range with an ejection fraction of 55-60%. No regional LV wall motion abnormalities noted. Left ventricle mild concentric hypertrophy. Right ventricle cavity is normal. Right ventricular systolic function is normal. Mitral valve demonstrates mild stenosis. See remainder of the report for additional findings. Left Ventricle Left ventricle cavity is small. There is mild concentric hypertrophy. Systolic function is normal with an ejection fraction of 55-60%. There are no regional LV wall motion abnormalities. Indeterminate diastolic function. Right Ventricle Right ventricle cavity appears normal. Systolic function is normal. Left Atrium Left atrium volume index is mildly increased. Right Atrium Right atrium cavity is normal. IVC/SVC RA pressures is estimated to be 3 mmHg (IVC diameter <21 mm and decreases >50% during inspiration). Mitral Valve The leaflets are mildly thickened. There is moderate posterior annular calcification. There is trace regurgitation. There is mild calcific stenosis. MV mean gradient is 4 mmHg at ~58 bpm. Tricuspid Valve The leaflets exhibit normal excursion. There is trace regurgitation. Cannot assess RVSP. Aortic Valve The aortic valve was not well visualized. There is no regurgitation or stenosis. Pulmonic Valve The pulmonic valve was not well visualized. There is trace pulmonic valve regurgitation. Ascending Aorta The aorta appears normal in size. Pericardium Pericardium appears normal. Study Details Overall the study quality was adequate. Difficult acoustic windows. us Monika Adams TOOLING SPECIALIST CV ECHO PROCEDURES Fin al Result documented in this encounter Visit Diagnoses Diagnosis CHF with left ventricular diastolic dysfunction, NYHA class 1 (CMS/HCC V24, CMS/HCC V28) documented in this encounter Care Teams Electric Organ Assembler And Checker Relationship Specialty Start Date End Date Joaquina Lamb MD [address] [place] [address] PCP - General 10/25/23 documented as of this encounter
--- NOTE | 2025-07-01 09:55 | A.OFFVIS_ITS ---
Vital Signs 07/01/25 09:56 Height 5 ft Weight 194 lb 8 oz BMI 38.0 BP 138/80 Blood Pressure Location Rt brachial Position Sitting Pulse 58 Pulse Source Pulse Oximeter Pulse Oximetry (%) 98 Oxygen Delivery Method Room Air Intake Visit Reasons: 6mnth Intake Note: Follow up Multifactorial gait disorder and Parkinsonism Executive Consultant Required: No Accompanied by: Sister Allergies pneumococcal 7-valent conjugate to (From Prevnar) Allergy (Mild, Verified 07/01/25 09:56) unknown Sulfa (Sulfonamide Antibiotics) Allergy (Mild, Verified 07/01/25 09:56) unknown enviormental Adverse Reaction (Uncoded 11/28/24 11:04) hard to breath Medication List - Last Reconciled 07/01/25 by Racquel Kruse MD amlodipine 2.5 mg PO BID aspirin 81 mg PO DAILY carbidopa-levodopa 25-100 mg 2 tabs PO .5 times a day 90 days carvedilol 12.5 mg PO BID dapagliflozin propanediol (Farxiga) 10 mg PO DAILY furosemide 40 mg PO DAILY losartan 100 mg PO DAILY metformin ER 750 mg PO DAILY polyethylene glycol 3350 (Miralax) 17 grams PO DAILY ropinirole 0.25 - 1 mg (1 - 4 x 0.25 mg) PO DAILY 3 days ropinirole ER 2 mg PO BEDTIME rosuvastatin 5 mg PO DAILY HPI Comments Details: 75y/o female with Diabetes, HTN , arthritis comes for follow up of her gait problems and parkinsons.she had 1 fall - she was trying to get to her walker from the transport wheel chair- it was not locked. requip XL 2 mg qhs helped.she could not tolerate the 4 mg . short acting ropiniorle 0.25 mg 4 tabs qhs helps.she is sleeping better she is on sinemet 25/100 10 tabs a day. Her restless legs start around 4 pm. Her knee osteoarthritis is worse and she is being evaluated for knee replacement. she has h/o scoliosis and spinal stenosis . she is followed up at [facility] and had shots in her pat hip No tremors . less freezing episodes her hand movements are slow, handwriting is small and voice is softer. Cognition is stable She has trouble sleeping if she misses requip She is not sure if she snores. No problem with chewing or swallowing . she has h/o chronic constipation No dizziness double vision or vertigo PFS Medical History Parkinsonism Back pain Falls Gait disorder Spinal stenosis Arthritis Diabetes HTN (hypertension) Surgical History Hx of cholecystectomy History of carpal tunnel release History of appendectomy Family History Mother HTN (hypertension) Heart disease Father HTN (hypertension) Heart disease Brother HTN (hypertension) Heart disease Sister HTN (hypertension) Heart disease Social History Alcohol intake: never Patient Tobacco Use Status: Never used Tobacco Physical Exam Vital Signs: Last Vital Signs Pulse 58 07/01/25 09:56 BP 138/80 07/01/25 09:56 Pulse Ox 98 07/01/25 09:56 Oxygen Delivery Method Room Air 07/01/25 09:56 BMI result Body Mass Index 38.0 Const General: cooperative, healthy appearing and no acute distress Nutritional Appearance: obese Orientation/consciousness: patient oriented x3 HEENT Head: Yes normal to inspection Neck Other: mild antecollis and restricted range of motion Neuro Other: Mild decreased blink and facial expression slow tongue movements Voice- mild hypophonia No tremors Fine Finger movements -moderately decreased L>R Alternating hand movements - decreased pat Hand movements - decreased pat Foot taps- decreased pat No cog wheel rigidity gait -did not bring her walker . General: patient oriented x3 and no focal motor deficits Cognition (Neuro): normal cognition Motor exam (neuro): 5/5 motor strength present throughout Coordination: [id number] test normal Assessment & Plan Assessment & Plan (1) Multifactorial gait disorder: Code(s): R26.89 - Other abnormalities of gait and mobility Category: Medical (2) Spinal stenosis: Code(s): M48.00 - Spinal stenosis, site unspecified Category: Medical Qualifiers: Spinal region: thoracolumbar Qualified Code(s): M48.05 - Spinal stenosis, thoracolumbar region (3) Parkinsonism: Code(s): G20.C - Parkinsonism, unspecified Category: Medical Qualifiers: Parkinsonism type: unspecified Qualified Code(s): G20.C - Parkinsonism, unspecified Plan continue Sinemet 25/100 to 2 tab 5 times a day( 6am,10am,2pm,6pm, 10 pm ) Spinal stenosis is likely contributing to her gait issues as well ropinirole XR 2mg qhs and continue requip 0.25 mg 1-4 tabs at 3 pm Medications: New ropinirole ER 2 mg PO BEDTIME 90 tabs 3RF Discontinued ropinirole ER Discontinued Reason: Doctor's Order 4 mg PO BEDTIME 30 tabs 6RF Coding Level of Care Code Est Pt Level 4 (09967) Complex EM visit Add On G2211 Diagnoses Multifactorial gait disorder R26.89 Spinal stenosis of thoracolumbar region M48.05 Spinal region: thoracolumbar Parkinsonism, unspecified Parkinsonism type G20.C Parkinsonism type: unspecified
[2025-07-01 09:56] VITALS: BP 138/80; PULSE 58; O2SAT 98; BMI 38.0
--- OUTSIDE RECORDS SUMMARY | 2025-07-01 11:22 | XMS_ITS | Encounter Summary ---
Author Organization [facility] Address [address] [place] [address] Phone Care Team Providers Care Dog Behaviorist Name Role Phone Joaquina Lamb MD Primary Care Provider Encounter Details Date Type Department Care Team (Late st Contact Info) Description 01/24/2024 Documentation Only [facility] [address] [place] [phone] [place]lin GhoshVir[place], [place] [address] [place] [address] Social History Tobacco Use Types [...] Visit [facility] [place] [phone] [facility] [address] [place] [phone] documented as of this encounter Visit Diagnoses Not on filedocumented in this encounter Care Teams Dog Behaviorist Relationship Specialty Start Date End Date Joaquina Lamb MD [address] [place] [address] PCP - General Internal Medicine 01/24/24 documented as of this encounter
--- OUTSIDE RECORDS SUMMARY | 2025-07-01 11:22 | XMS_ITS | Encounter Summary ---
Author Organization [facility] Address [address] [place] [address] Phone Care Team Providers Care Reconciliation Machine Operator Name Role Phone Joaquina Lamb MD Primary Care Provider Encounter Details Date Type Department Care Team (Late st Contact Info) Description 04/24/2018 Procedure [facility] [address] [place] [address] Social History Tobacco Use Types Packs/Day Years Used Date Smoking Tobacco: Never Assessed Comments Unknown Sex and Gender Information Value Date Recorded Sex Assigned at Not on file Legal Sex Female 12:05 PM EDT Gender Identity Not on file Sexual Orientation Not on file documented as of this encounter Plan of Treatment Not on file documented as of this encounter Visit Diagnoses Not on filedocumented in this encounter Care Teams Reconciliation Machine Operator Relationship Specialty Start Date End Date Joaquina Lamb MD PCP - General Internal Medicine 04/18/18 documented as of this encounter Additional Source Comments The information contained in this document represents components of the legal health record. It is not the complete legal health record.[facility]
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
--- OUTSIDE RECORDS SUMMARY | 2025-07-01 11:22 | XMS_ITS | Clinical Summary ---
Author Organization [facility], Address [address] [place] [address] [place] [address] Phone Care Team Providers Care Rn School Name Role Phone Joaquina Lamb MD Primary [...] Visit [facility] [address] [place] [address] Ra Singleton, DO [address] [place] [address] Health Maintenance Due Date Last Done Comments Breast Cancer Screening 1950 Colorectal Cancer Screening: Annual FOBT 1999 Colorectal Cancer Screening: Colonoscopy 1999 Colorectal Cancer Screening: Sigmoidoscopy 1999 Pneumococcal Vaccine: 50+ Ye ars (2 of 2 - PCV20 or PCV21) 12/29/2016 12/30/2015 Diabetes: Hemoglobin A1C 02/07/2024 Diabetes: Ophthalmology Exam 02/07/2024 Diabetes: Pedal Pulse Checked 02/07/2024 Diabetes: Sensory Foot Exam 02/07/2024 Diabetes: Visual Foot Exam 02/07/2024 Influenza Vaccine (#1) 2025 Pneumococcal Vaccine: Peds ( 0 to 5 Years) and At-Risk Patients (6 to 49 Years) Discontinued 12/30/2015 Hepatitis B Vaccine Aged Out No longe r eligible based on patient's age to complete this topic Insurance Medicare [facility] Care Teams Rn School Relationship Specialty Start Date End Date Joaquina Lamb MD [address] [place] [id number] PCP - General Internal Medicine 01/24/24
--- OUTSIDE RECORDS SUMMARY | 2025-07-01 11:22 | XMS_ITS | Clinical Summary ---
Author Organization [facility] Address [address] [place] [address] Phone Care Team Providers Care Reproducer Name Role Phone Joaquina Lamb MD Primary Care Provider Active Problems Problem Noted Date Diagnosed Date Other idiopathic scoliosis, lumbar region 2017 Social History Tobacco Use Types Packs/Day Years Used Date Smoking Tobacco: Never Assessed Education Answer Date Recorded Are you interested in more education? Not on sandor e 01/20/2023 Are you concerned about learning? Not on file 01/20/2023 No 01/20/2023 No 01/20/2023 Digital Access Answer Date Recorded No 02/18/2023 No 02/18/2023 No 02/18/2023 Reliable internet access at home? Not on file 02/18/2023 Device with a working camera? Not on file Comments Unknown Sex and Gender Information Value Date Recorded Sex Assigned at Not on file Legal Sex Female 12:05 PM EDT Gender Identity Not on file Sexual Orientation Not on file Plan of Treatment Health Maintenance Due Date Last Done Comments LIPID PANEL 1950 DEPRESSION SCREENING 1962 SMOKING Hx and SMOKELESS TOB ACCO SCREENING 1963 HEPATITIS C SCREENING 1968 COLOGUARD 1995 COLONOSCOPY 1995 COLORECTAL CANCER SCREENING 1995 FIT TEST 1995 FOBT 1995 SIGMOIDOSCOPY 1995 VIRTUAL COLONOSCOPY 1995 PNEUMOCOCCAL VACCINES (50+ y ears) (1 of 1 - PCV) 2000 ZOSTER VACCINES (1 of 2) 2000 OSTEOPOROSIS SCREENING INITI AL (ONE-TIME) 2015 Adult Td,Tdap Booster 02/07/2023 02/07/2013 RSV VACCINE (1 - 1-dose 75+ series) 2025 INFLUENZA VACCINE (#1) 2025 COVID-19 VACCINE (2 - 2024-2 6 season) 2025 12/01/2020 HEPATITIS A VACCINES Aged Out No long er eligible based on patient's age to complete this topic HIB VACCINES Aged Out No longer eligi ble based on patient's age to complete this topic MENINGOCOCCAL VACCINES (ACWY) Aged Out No longer eligible based on patient's age to complete this topic MENINGOCOCCAL VACCINES (B) Aged Out N o longer eligible based on patient's age to complete this topic Medical Devices Not on file Insurance MEDICARE PART A & B [facility] TOTAL CHOICE INDEMNITY MEDICARE PART A & B [facility] TOTAL CHOICE INDEMNITY MEDICARE PART A & B [facility] TOTAL CHOICE INDEMNITY MEDICARE PART A & B [facility] TOTAL CHOICE INDEMNITY MEDICARE PART A & B [facility] TOTAL CHOICE INDEMNITY MEDICARE PART A & B [facility] TOTAL CHOICE INDEMNITY MEDICARE PART A & B [facility] TOTAL CHOICE INDEMNITY MEDICARE PART A & B [facility] TOTAL CHOICE INDEMNITY MEDICARE PART A & B [facility] TOTAL CHOICE INDEMNITY Care Teams Reproducer Relationship Specialty Start Date End Date Joaquina Lamb MD PCP - General Internal Medicine 04/18/18 Additional Source Comments The information contained in this document represents components of the legal health record. It is not the complete legal health record.[facility]
--- OUTSIDE RECORDS SUMMARY | 2025-07-01 11:22 | XMS_ITS | Encounter Summary ---
Author Organization [facility] Address [address] [place] [address] Phone Care Team Providers Care Internal Recruiter Name Role Phone Joaquina Lamb MD Primary Care Provider [phone] Encounter Details Date Type Department Care Team (Late st Contact Info) Description 07/01/2024 Documentation Only [facility], [address] [place] [address] Ra Singleton DO [address] [place] [address] Social History Tobacco Use Types [...] Visit [facility] [place] [id number] Ra Singleton DO [address] [place] [address] documented as of this encounter Visit Diagnoses Not on filedocumented in this encounter Care Teams Internal Recruiter Relationship Specialty Start Date End Date Joaquina Lamb MD [address] [place] [phone] PCP - General Internal Medicine 01/24/24 documented as of this encounter
== END 2025-07-01 10:37 | disposition home or self-care (01) ==
LOC: HO.HSMS 09:51
PROVIDERS: PCP Internal Medicine; Visit Provider Psychiatry & Neurology Neurology
DX: R26.89 Other abnormalities of gait and mobility (principal); M48.05 Spinal stenosis, thoracolumbar region; G20.C Parkinsonism, unspecified
CPT/HCPCS: 99214; G2211

== ENCOUNTER → 2025-07-01 09:51 | Outpatient (BNVA) | payer MEDICARE, SELFPAY | PROVIDERS: PCP Internal Medicine; Visit Provider Psychiatry & Neurology Neurology | DX: M48.05 Spinal stenosis, thoracolumbar region (principal); R26.89 Other abnormalities of gait and mobility; G20.C Parkinsonism, unspecified | CPT/HCPCS: 99212 ==